=== PATIENT | female | born 1980 | race Two or more races ===

== ENCOUNTER 2017-08-31 19:15 | Inpatient (IN) | payer OTHER ==
[~2017-08-31] VITALS: Ht 165.1 cm; Wt 83.5 kg
[2017-08-31] MEDS ORDERED: ZOFRAN4 MG (19:55)
[2017-08-31] MEDS ORDERED: PRENATABS RX T1 EACH (19:56)
[2017-09-03] MEDS ORDERED: ZOFRAN4 MG PO (09:37)
[2017-09-03] MEDS ORDERED: METOCLOPRAMIDE10 MG PO (09:38)
[2017-09-03] MEDS ORDERED: BUDESONIDE0.5 MG/2 M IH (09:39)
[2017-09-03] MEDS ORDERED: ALBUTEROL0.63 MG/3 IH (09:40)
[2017-09-03] MEDS ORDERED: MEDROLPACK PO (09:41)
[2017-09-03] MEDS ORDERED: PEPCID20 MG PO (09:42)
[2017-09-03] MEDS ORDERED: OBSTETRIX ONE1 EACH PO (09:43)
== END 2017-09-03 12:19 | disposition home or self-care (01) | DRG 781 ==
LOC: ER 19:15 → OB/GYN 09-01 23:12
PROC: 3E0F7GC Introduction of Other Therapeutic Substance into Respiratory Tract, Via Natural or Artificial Opening (ICD-10-PCS; principal; 2017-09-01)
PROC: BU4CZZZ Ultrasonography of Uterus and Ovaries (ICD-10-PCS; 2017-09-01)
DX: O99.511 Diseases of the respiratory system complicating pregnancy, first trimester (principal); J45.41 Moderate persistent asthma with (acute) exacerbation; Z3A.09 9 weeks gestation of pregnancy; J11.1 Influenza due to unidentified influenza virus with other respiratory manifestations